=== PATIENT | female | born 1970 | race Caucasian/White ===

== ENCOUNTER 2021-12-26 08:23 | Inpatient (IN) ==
[2021-12-26] MEDS ORDERED: HYDROmorphone 1 MG/1 ML SYRINGE IV STA (08:58)
[2021-12-26] MEDS ORDERED: SODIUM CHLORIDE 0.9% 1,000 ML IV STA (08:58)
[2021-12-26] MEDS ORDERED: ONDANSETRON 4 MG/2 ML VIAL IV STA (08:58)
[2021-12-26] MEDS ORDERED: TAMSULOSIN 0.4 MG CAPSULE PO STA (09:49)
[2021-12-26] MEDS ORDERED: ONDANSETRON 4 MG/2 ML VIAL IV PRN (09:50)
[2021-12-26] MEDS: LACTATED RINGERS 1,000 ML IV SCH (10:39)
[2021-12-26] MEDS: HYDROmorphone 1 MG/1 ML SYRINGE IV PRN ×2 (16:24→21:39)
[2021-12-26] MEDS ORDERED: HYDROmorphone 2 MG TABLET PO PRN (17:16)
[2021-12-26] MEDS ORDERED: OXYBUTYNIN 5 MG TABLET PO PRN (17:16)
[2021-12-26] MEDS ORDERED: KETOROLAC 10 MG TABLET PO PRN (17:16)
[2021-12-26] MEDS ORDERED: ONDANSETRON ODT 4 MG TABLET PO PRN (17:27)
[2021-12-26 19:17] LABS: Basophils % 0.2 % (0.0-0.8); Eosinophils # 0.1 10*3/uL (0.0-0.87); Eosinophils % 0.6 % (0.00-10.9); Hematocrit 31.8 VOL% (35.7-47.0); Hemoglobin 10.5 GM/DL (12.0-16.0); Immature Granulocytes % 1.1 %; Immature Granulocytes Absolute 0.14 #; Lymphocytes # 1.4 10*3/uL (1.4-4.0); Lymphocytes % 11.1 % (21.3-54.2); Mean Corpuscular Volume 91.4 FL (87-102); Mean Platelet Volume 11.8 FL (9.6-12.0); Monocytes # 0.8 10*3/uL (0.11-0.8); Monocytes % 6.2 % (1.7-12.7); Neutrophils % 80.8 % (38.7-73.9); Platelet Count 147 T/CUMM (130-400); Red Blood Count 3.48 MC/CUMM (3.8-5.5); Red Cell Distribution Width 13.8 % (9.3-17.3)
[2021-12-26 19:49] LABS: Calcium 8.2 MG/DL (8.5-10.1); Osmolality,Calculated 275.7 MOS/KG (273-304); Potassium 3.2 MMOL/L (3.5-5.1)
[2021-12-26 20:40] LABS: Bacteria,Urine Occasional /HPF (Few); Mucus,Urine Occasional /LPF (Occasional); RBC,Urine 2 /HPF (0-4); Squamous Epithelial Cell,Urine Occasional /HPF (0-10)
[2021-12-26 20:41] LABS: Bilirubin,Urine Negative (Negative); Blood, Urine Moderate mg/dL (Negative); Glucose,Urine (UA) Negative (Negative); Ketones,Urine Negative (Negative); Nitrite,Urine Negative (Negative); Protein,Urine Trace mg/dL (Negative); Urine Appearance Clear (Clear); Urine Color Yellow (Yellow); Urine Specific Gravity <= 1.005 (1.001-1.035)
[2021-12-26] MEDS ORDERED: cefTRIAXone 1,000 MG in SODIUM CHLORIDE 0.9% 100 ML IV SCH (21:00)
[2021-12-26] MEDS: ATORVASTATIN 40 MG TABLET PO SCH (21:35)
[2021-12-26] MEDS: POTASSIUM CHLORIDE RIDER 10 MEQ/100 ML PREMIX IV PRN ×2 (22:44→23:52)
[2021-12-27] MEDS: POTASSIUM CHLORIDE RIDER 10 MEQ/100 ML PREMIX IV PRN ×2 (00:56→02:00)
[2021-12-27 05:20] LABS: Basophils # 0.1 10*3/uL (0.0-0.2); Basophils % 0.3 % (0.0-0.8); Eosinophils # 0.1 10*3/uL (0.0-0.87); Eosinophils % 0.7 % (0.00-10.9); Hematocrit 30.2 VOL% (35.7-47.0); Hemoglobin 9.9 GM/DL (12.0-16.0); Immature Granulocytes % 1.7 %; Immature Granulocytes Absolute 0.27 #; Lymphocytes # 1.8 10*3/uL (1.4-4.0); Lymphocytes % 11.6 % (21.3-54.2); Mean Corpuscular HGB Conc 32.8 GM/DL (32-36); Mean Corpuscular Volume 92.1 FL (87-102); Mean Platelet Volume 11.8 FL (9.6-12.0); Monocytes # 1.2 10*3/uL (0.11-0.8); Monocytes % 7.7 % (1.7-12.7); Platelet Count 163 T/CUMM (130-400); Red Blood Count 3.28 MC/CUMM (3.8-5.5); Red Cell Distribution Width 13.9 % (9.3-17.3); White Blood Count 15.9 T/CUMM (4-12)
[2021-12-27 05:38] LABS: Calcium 8.7 MG/DL (8.5-10.1); Potassium 4.3 MMOL/L (3.5-5.1)
[2021-12-27] MEDS ORDERED: cefTRIAXone 1,000 MG in SODIUM CHLORIDE 0.9% 100 ML IV ONE (06:00)
[2021-12-27 08:37] LABS: INR 1.1; PT Patient Result 11.9 SECS (10.5-12.0)
[2021-12-27] MEDS: MEROPENEM 500 MG in SODIUM CHLORIDE 0.9% 100 ML IV SCH ×3 (09:42→20:52)
[2021-12-27] MEDS: CITALOPRAM 40 MG TABLET PO SCH (11:01)
[2021-12-27] MEDS: ARIPiprazole 2 MG TABLET PO SCH (11:01)
[2021-12-27] MEDS: TAMSULOSIN 0.4 MG CAPSULE PO SCH (11:02)
[2021-12-27] MEDS: PANTOPRAZOLE 40 MG TABLET PO SCH (11:03)
[2021-12-27] MEDS ORDERED: DIAZEPAM 5 MG TABLET PO ONE (11:30)
[2021-12-27] MEDS: SODIUM CHLORIDE 0.45% 1,000 ML IV SCH ×2 (11:58→19:10)
[2021-12-27] MEDS ORDERED: NALOXONE 0.4 MG/ML VIAL IV PRN (16:07)
[2021-12-27] MEDS: HYDROmorphone 1 MG/1 ML SYRINGE IV PRN (16:09)
[2021-12-27] MEDS ORDERED: diphenhydrAMINE 50 MG/1 ML VIAL IV PRN (16:09)
[2021-12-27] MEDS ORDERED: HYDROmorphone PCA 30 MG/30 ML SYRINGE IV SCH (16:30)
[2021-12-27] MEDS: ATORVASTATIN 40 MG TABLET PO SCH (21:55)
[2021-12-28] MEDS: SODIUM CHLORIDE 0.45% 1,000 ML IV SCH ×2 (01:40→17:54)
[2021-12-28] MEDS: MEROPENEM 500 MG in SODIUM CHLORIDE 0.9% 100 ML IV SCH ×4 (02:23→21:53)
[2021-12-28] MEDS: LACTATED RINGERS 1,000 ML IV SCH ×2 (02:47→02:48)
[2021-12-28 05:29] LABS: Basophils % 0.4 % (0.0-0.8); Eosinophils # 0.1 10*3/uL (0.0-0.87); Eosinophils % 0.8 % (0.00-10.9); Hematocrit 27.3 VOL% (35.7-47.0); Hemoglobin 8.9 GM/DL (12.0-16.0); Immature Granulocytes Absolute 0.11 #; Lymphocytes # 1.3 10*3/uL (1.4-4.0); Lymphocytes % 11.2 % (21.3-54.2); Mean Corpuscular HGB Conc 32.6 GM/DL (32-36); Mean Corpuscular Volume 92.9 FL (87-102); Mean Platelet Volume 11.3 FL (9.6-12.0); Monocytes # 0.6 10*3/uL (0.11-0.8); Monocytes % 5.6 % (1.7-12.7); Platelet Count 216 T/CUMM (130-400); Red Blood Count 2.94 MC/CUMM (3.8-5.5); White Blood Count 11.2 T/CUMM (4-12)
[2021-12-28 05:54] LABS: Osmolality,Calculated 272.8 MOS/KG (273-304); Potassium 3.4 MMOL/L (3.5-5.1)
[2021-12-28] MEDS: TAMSULOSIN 0.4 MG CAPSULE PO SCH (09:23)
[2021-12-28] MEDS: ARIPiprazole 2 MG TABLET PO SCH (09:23)
[2021-12-28] MEDS: CITALOPRAM 40 MG TABLET PO SCH (09:23)
[2021-12-28] MEDS: PANTOPRAZOLE 40 MG TABLET PO SCH (09:23)
[2021-12-28] MEDS ORDERED: POTASSIUM CHLORIDE 20 MEQ TABLET PO ONE (09:24)
[2021-12-28] MEDS: DEXT 5% NACL 0.45% KCL 20 MEQ 20 MEQ/1,000 ML BAG IV SCH (10:44)
[2021-12-28] MEDS: KETOROLAC 15 MG/1 ML VIAL IV SCH ×2 (13:01→17:55)
[2021-12-28] MEDS: HYDROmorphone 2 MG TABLET PO PRN ×2 (15:41→21:52)
[2021-12-28] MEDS: ATORVASTATIN 40 MG TABLET PO SCH (21:51)
[2021-12-29] MEDS: KETOROLAC 15 MG/1 ML VIAL IV SCH ×4 (00:27→21:22)
[2021-12-29] MEDS: DEXT 5% NACL 0.45% KCL 20 MEQ 20 MEQ/1,000 ML BAG IV SCH ×2 (00:28→16:08)
[2021-12-29] MEDS: MEROPENEM 500 MG in SODIUM CHLORIDE 0.9% 100 ML IV SCH ×4 (03:15→21:07)
[2021-12-29 06:34] LABS: Basophils # 0.1 10*3/uL (0.0-0.2); Basophils % 0.4 % (0.0-0.8); Eosinophils # 0.1 10*3/uL (0.0-0.87); Eosinophils % 0.9 % (0.00-10.9); Hematocrit 29.6 VOL% (35.7-47.0); Hemoglobin 9.3 GM/DL (12.0-16.0); Immature Granulocytes % 1.3 %; Immature Granulocytes Absolute 0.16 #; Lymphocytes # 1.5 10*3/uL (1.4-4.0); Lymphocytes % 11.9 % (21.3-54.2); Mean Corpuscular HGB Conc 31.4 GM/DL (32-36); Mean Corpuscular Volume 95.5 FL (87-102); Mean Platelet Volume 11.1 FL (9.6-12.0); Monocytes # 0.8 10*3/uL (0.11-0.8); Monocytes % 6.1 % (1.7-12.7); Neutrophils % 79.4 % (38.7-73.9); Platelet Count 314 T/CUMM (130-400); Red Cell Distribution Width 14.3 % (9.3-17.3); White Blood Count 12.3 T/CUMM (4-12)
[2021-12-29 07:01] LABS: Calcium 8.3 MG/DL (8.5-10.1); Osmolality,Calculated 278.3 MOS/KG (273-304); Potassium 4.3 MMOL/L (3.5-5.1)
[2021-12-29] MEDS: ARIPiprazole 2 MG TABLET PO SCH (10:14)
[2021-12-29] MEDS: CITALOPRAM 40 MG TABLET PO SCH (10:15)
[2021-12-29] MEDS: PANTOPRAZOLE 40 MG TABLET PO SCH (10:15)
[2021-12-29] MEDS: TAMSULOSIN 0.4 MG CAPSULE PO SCH (10:15)
[2021-12-29] MEDS: HYDROmorphone 2 MG TABLET PO PRN ×2 (10:16→23:48)
[2021-12-29] MEDS: SODIUM CHLORIDE 0.45% 1,000 ML IV SCH ×2 (19:21→19:27)
[2021-12-29] MEDS: ATORVASTATIN 40 MG TABLET PO SCH (21:07)
[2021-12-30] MEDS: MEROPENEM 500 MG in SODIUM CHLORIDE 0.9% 100 ML IV SCH ×2 (04:03→08:28)
[2021-12-30] MEDS: KETOROLAC 15 MG/1 ML VIAL IV SCH ×4 (04:12→22:30)
[2021-12-30] MEDS: DEXT 5% NACL 0.45% KCL 20 MEQ 20 MEQ/1,000 ML BAG IV SCH (05:09)
[2021-12-30 06:12] LABS: Basophils # 0.1 10*3/uL (0.0-0.2); Basophils % 0.5 % (0.0-0.8); Eosinophils # 0.1 10*3/uL (0.0-0.87); Eosinophils % 1.2 % (0.00-10.9); Hematocrit 29.8 VOL% (35.7-47.0); Hemoglobin 9.2 GM/DL (12.0-16.0); Immature Granulocytes % 0.8 %; Immature Granulocytes Absolute 0.08 #; Lymphocytes # 1.3 10*3/uL (1.4-4.0); Lymphocytes % 12.8 % (21.3-54.2); Mean Corpuscular HGB Conc 30.9 GM/DL (32-36); Mean Corpuscular Volume 96.1 FL (87-102); Monocytes # 0.7 10*3/uL (0.11-0.8); Monocytes % 6.9 % (1.7-12.7); Neutrophils % 77.8 % (38.7-73.9); Platelet Count 392 T/CUMM (130-400); Red Cell Distribution Width 14.3 % (9.3-17.3); White Blood Count 9.9 T/CUMM (4-12)
[2021-12-30 06:33] LABS: Calcium 8.1 MG/DL (8.5-10.1); Osmolality,Calculated 280.1 MOS/KG (273-304); Potassium 4.7 MMOL/L (3.5-5.1)
[2021-12-30] MEDS: CITALOPRAM 40 MG TABLET PO SCH (08:25)
[2021-12-30] MEDS: ARIPiprazole 2 MG TABLET PO SCH (08:25)
[2021-12-30] MEDS: TAMSULOSIN 0.4 MG CAPSULE PO SCH (08:26)
[2021-12-30] MEDS: HYDROmorphone 2 MG TABLET PO PRN (08:27)
[2021-12-30] MEDS: PANTOPRAZOLE 40 MG TABLET PO SCH (10:30)
[2021-12-30] MEDS ORDERED: SIMETHICONE CHEW 125 MG TABLET PO PRN (11:42)
[2021-12-30] MEDS: LEVOFLOXACIN INJ 750 MG/150 ML PREMIX IV SCH (17:04)
[2021-12-30] MEDS: ATORVASTATIN 40 MG TABLET PO SCH (22:33)
[2021-12-31] MEDS: DEXT 5% NACL 0.45% KCL 20 MEQ 20 MEQ/1,000 ML BAG IV SCH (01:30)
[2021-12-31] MEDS: KETOROLAC 15 MG/1 ML VIAL IV SCH ×2 (04:04→09:03)
[2021-12-31 06:43] LABS: Basophils # 0.1 10*3/uL (0.0-0.2); Basophils % 0.7 % (0.0-0.8); Eosinophils # 0.1 10*3/uL (0.0-0.87); Eosinophils % 1.4 % (0.00-10.9); Hematocrit 29.1 VOL% (35.7-47.0); Hemoglobin 9.2 GM/DL (12.0-16.0); Immature Granulocytes % 0.8 %; Immature Granulocytes Absolute 0.07 #; Lymphocytes # 1.5 10*3/uL (1.4-4.0); Lymphocytes % 15.9 % (21.3-54.2); Mean Corpuscular HGB Conc 31.6 GM/DL (32-36); Mean Corpuscular Volume 94.2 FL (87-102); Mean Platelet Volume 10.2 FL (9.6-12.0); Monocytes # 0.8 10*3/uL (0.11-0.8); Monocytes % 8.2 % (1.7-12.7); Platelet Count 463 T/CUMM (130-400); Red Blood Count 3.09 MC/CUMM (3.8-5.5); White Blood Count 9.2 T/CUMM (4-12)
[2021-12-31 07:31] LABS: Calcium 8.5 MG/DL (8.5-10.1); Osmolality,Calculated 277.3 MOS/KG (273-304); Potassium 4.5 MMOL/L (3.5-5.1)
[2021-12-31 08:04] VITALS: BP 115/65
[2021-12-31] MEDS: ARIPiprazole 2 MG TABLET PO SCH (09:01)
[2021-12-31] MEDS: CITALOPRAM 40 MG TABLET PO SCH (09:02)
[2021-12-31] MEDS: PANTOPRAZOLE 40 MG TABLET PO SCH (09:02)
[2021-12-31] MEDS: TAMSULOSIN 0.4 MG CAPSULE PO SCH (09:02)
[2021-12-31] MEDS: LEVOFLOXACIN INJ 750 MG/150 ML PREMIX IV SCH (09:04)
== END 2021-12-31 10:57 | disposition home health service (06) | DRG 690 ==
LOC: N.ED 08:23 → N.EDINP 08:23 → N.5E 10:45
PROVIDERS: ADMIT Surgery; ATTEND Surgery

== ENCOUNTER 2022-01-09 10:03 | Inpatient (IN) ==
[2022-01-09] MEDS ORDERED: ONDANSETRON 4 MG/2 ML VIAL IV STA (10:37)
[2022-01-09] MEDS ORDERED: HYDROmorphone 1 MG/1 ML SYRINGE IV STA ×2 (10:37→11:27)
[2022-01-09] MEDS ORDERED: SODIUM CHLORIDE 0.9% 1,000 ML IV STA (10:37)
[2022-01-09 10:49] LABS: Basophils # 0.2 10*3/uL (0.0-0.2); Basophils % 1.3 % (0.0-0.8); Eosinophils # 0.5 10*3/uL (0.0-0.87); Eosinophils % 4.2 % (0.00-10.9); Hematocrit 34.7 VOL% (35.7-47.0); Hemoglobin 11.2 GM/DL (12.0-16.0); Immature Granulocytes % 0.4 %; Immature Granulocytes Absolute 0.05 #; Lymphocytes # 3.1 10*3/uL (1.4-4.0); Lymphocytes % 25.9 % (21.3-54.2); Mean Corpuscular HGB Conc 32.3 GM/DL (32-36); Mean Corpuscular Volume 91.8 FL (87-102); Mean Platelet Volume 10.4 FL (9.6-12.0); Monocytes # 1.2 10*3/uL (0.11-0.8); Monocytes % 10.1 % (1.7-12.7); Neutrophils % 58.1 % (38.7-73.9); Platelet Count 541 T/CUMM (130-400); Red Blood Count 3.78 MC/CUMM (3.8-5.5); Red Cell Distribution Width 13.4 % (9.3-17.3); White Blood Count 11.9 T/CUMM (4-12)
[2022-01-09] MEDS ORDERED: PROMETHAZINE 25 MG/1 ML VIAL ONE (10:57)
[2022-01-09] MEDS ORDERED: PROMETHAZINE 25 MG/1 ML VIAL IM STA (11:03)
[2022-01-09 11:09] LABS: Albumin 2.7 G/DL (3.4-5.0); Bilirubin,Total 0.5 MG/DL (0.20-1.00); Calcium 9.1 MG/DL (8.5-10.1); Osmolality,Calculated 280.1 MOS/KG (273-304); Potassium 3.4 MMOL/L (3.5-5.1); Total Protein 7.8 G/DL (6.4-8.2)
[2022-01-09] MEDS ORDERED: KETOROLAC 30 MG/1 ML VIAL IV STA (11:27)
[2022-01-09 11:31] LABS: Bacteria,Urine Occasional /HPF (Few); Mucus,Urine Occasional /LPF (Occasional); RBC,Urine 4 /HPF (0-4); Squamous Epithelial Cell,Urine Occasional /HPF (0-10)
[2022-01-09 11:32] LABS: Bilirubin,Urine Negative (Negative); Blood, Urine Trace mg/dL (Negative); Glucose,Urine (UA) Negative (Negative); Ketones,Urine Negative (Negative); Nitrite,Urine Negative (Negative); Protein,Urine Negative (Negative); Urine Appearance Slightly Hazy (Clear); Urine Color Yellow (Yellow); Urine Specific Gravity 1.015 (1.001-1.035); Urine Urobilinogen 0.2 eU/dL (<2.0); Urine pH 7.5 (4.5-8.0)
[2022-01-09] MEDS ORDERED: SODIUM CHLORIDE 0.9% 2,400 ML IV ONE (12:25)
[2022-01-09] MEDS ORDERED: ACETAMINOPHEN 325 MG TABLET PO PRN (16:29)
[2022-01-09] MEDS ORDERED: ONDANSETRON 4 MG/2 ML VIAL IV PRN (16:29)
[2022-01-09] MEDS ORDERED: cefTRIAXone 1,000 MG in SODIUM CHLORIDE 0.9% 100 ML IV ONE (16:58)
[2022-01-09] MEDS: SODIUM CHLORIDE 0.9% 1,000 ML IV SCH (18:38)
[2022-01-09] MEDS: HYDROmorphone 1 MG/1 ML SYRINGE IV PRN ×2 (18:40→22:00)
[2022-01-09] MEDS: DOCUSATE SODIUM 100 MG CAPSULE PO SCH (21:43)
[2022-01-10] MEDS: HYDROmorphone 1 MG/1 ML SYRINGE IV PRN ×2 (02:02→15:59)
[2022-01-10] MEDS: SODIUM CHLORIDE 0.9% 1,000 ML IV SCH ×2 (03:39→15:04)
[2022-01-10 05:12] LABS: Basophils # 0.1 10*3/uL (0.0-0.2); Basophils % 0.8 % (0.0-0.8); Eosinophils # 0.8 10*3/uL (0.0-0.87); Eosinophils % 5.5 % (0.00-10.9); Hematocrit 31.7 VOL% (35.7-47.0); Hemoglobin 9.7 GM/DL (12.0-16.0); Immature Granulocytes % 0.6 %; Immature Granulocytes Absolute 0.09 #; Lymphocytes # 2.8 10*3/uL (1.4-4.0); Lymphocytes % 19.6 % (21.3-54.2); Mean Corpuscular HGB Conc 30.6 GM/DL (32-36); Mean Corpuscular Volume 96.9 FL (87-102); Mean Platelet Volume 10.3 FL (9.6-12.0); Monocytes # 1.7 10*3/uL (0.11-0.8); Monocytes % 11.6 % (1.7-12.7); Neutrophils % 61.9 % (38.7-73.9); Platelet Count 405 T/CUMM (130-400); Red Blood Count 3.27 MC/CUMM (3.8-5.5); Red Cell Distribution Width 13.9 % (9.3-17.3); White Blood Count 14.2 T/CUMM (4-12)
[2022-01-10 05:41] LABS: Calcium 7.8 MG/DL (8.5-10.1); Osmolality,Calculated 287.7 MOS/KG (273-304); Potassium 4.1 MMOL/L (3.5-5.1)
[2022-01-10] MEDS ORDERED: ARIPiprazole 2 MG TABLET PO SCH (09:00)
[2022-01-10] MEDS ORDERED: LEVOFLOXACIN INJ 500 MG/100 ML PREMIX IV SCH (09:00)
[2022-01-10] MEDS ORDERED: ATORVASTATIN 40 MG TABLET PO SCH (09:00)
[2022-01-10] MEDS ORDERED: PANTOPRAZOLE 40 MG TABLET PO SCH (09:00)
[2022-01-10] MEDS ORDERED: CITALOPRAM 40 MG TABLET PO SCH (09:00)
[2022-01-10] MEDS ORDERED: cefTRIAXone 1,000 MG in SODIUM CHLORIDE 0.9% 100 ML IV ONE (09:30)
[2022-01-10] MEDS ORDERED: SCOPOLAMINE 1.5 MG PATCH TRANSDERM ONE (09:58)
[2022-01-10] MEDS ORDERED: fentaNYL 100 MCG/2 ML VIAL ONE (10:09)
[2022-01-10] MEDS ORDERED: MIDAZOLAM 2 MG/2 ML VIAL ONE (10:09)
[2022-01-10] MEDS ORDERED: NEOMYCIN/POLYMYXIN IRRIG SOLN 1 ML AMP BLADDERIRR ONE (10:13)
[2022-01-10] MEDS ORDERED: LACTATED RINGERS 1,000 ML IV SCH (10:30)
[2022-01-10] MEDS ORDERED: LIDOCAINE 2% 5 ML VIAL ONE (10:43)
[2022-01-10] MEDS ORDERED: propofoL 200 MG/20 ML VIAL IV ONE (10:43)
[2022-01-10] MEDS ORDERED: ONDANSETRON 4 MG/2 ML VIAL ONE (10:43)
[2022-01-10] MEDS ORDERED: SEVOFLURANE 1 UNIT/15 MINUTE INH ONE (10:43)
[2022-01-10] MEDS ORDERED: HYDROmorphone 1 MG/1 ML SYRINGE IV PRN (11:28)
[2022-01-10] MEDS ORDERED: ONDANSETRON 4 MG/2 ML VIAL IV PRN (11:28)
[2022-01-10] MEDS: DOCUSATE SODIUM 100 MG CAPSULE PO SCH (15:03)
[2022-01-10 16:00] VITALS: BP 99/50
[2022-01-10] MEDS ORDERED: MEROPENEM 500 MG in SODIUM CHLORIDE 0.9% 100 ML IV SCH (16:00)
[2022-01-10] MEDS ORDERED: ZALEPLON 5 MG CAPSULE PO SCH (21:00)
== END 2022-01-10 17:13 | disposition home or self-care (01) | DRG 661 ==
LOC: N.ED 10:03 → N.EDINP 11:34 → N.5E 16:28
PROVIDERS: ADMIT Family Medicine; ATTEND Family Medicine

== ENCOUNTER 2022-04-10 06:50 | Inpatient (IN) ==
[2022-04-10 07:41] LABS: Basophils % 0.5 % (0.0-0.8); Eosinophils # 0.3 10*3/uL (0.0-0.87); Eosinophils % 4.1 % (0.00-10.9); Hematocrit 37.7 VOL% (35.7-47.0); Hemoglobin 12.2 GM/DL (12.0-16.0); Immature Granulocytes % 0.4 %; Immature Granulocytes Absolute 0.03 #; Lymphocytes # 1.5 10*3/uL (1.4-4.0); Lymphocytes % 19.8 % (21.3-54.2); Mean Corpuscular HGB Conc 32.4 GM/DL (32-36); Mean Platelet Volume 10.9 FL (9.6-12.0); Monocytes # 0.5 10*3/uL (0.11-0.8); Monocytes % 6.3 % (1.7-12.7); Neutrophils % 68.9 % (38.7-73.9); Platelet Count 201 T/CUMM (130-400); Red Cell Distribution Width 12.5 % (9.3-17.3); White Blood Count 7.8 T/CUMM (4-12)
[2022-04-10 07:59] LABS: Albumin 3.4 G/DL (3.4-5.0); Bilirubin,Total 0.4 MG/DL (0.20-1.00); Calcium 9.4 MG/DL (8.5-10.1); Potassium 3.2 MMOL/L (3.5-5.1); Total Protein 7.5 G/DL (6.4-8.2)
[2022-04-10 08:26] LABS: Bacteria,Urine Occasional /HPF (Few); Mucus,Urine Few /LPF (Occasional); Squamous Epithelial Cell,Urine Few /HPF (0-10)
[2022-04-10 08:27] LABS: Bilirubin,Urine Negative (Negative); Blood, Urine Trace mg/dL (Negative); Glucose,Urine (UA) Negative (Negative); Ketones,Urine Negative (Negative); Nitrite,Urine Positive (Negative); Protein,Urine Negative (Negative); Urine Appearance Slightly Hazy (Clear); Urine Color Yellow (Yellow); Urine Specific Gravity > 1.030 (1.001-1.035); Urine Urobilinogen 0.2 eU/dL (<2.0); Urine pH 5.5 (4.5-8.0)
[2022-04-10] MEDS ORDERED: cefTRIAXone 1,000 MG in SODIUM CHLORIDE 0.9% 100 ML IV STA (08:55)
[2022-04-10] MEDS ORDERED: ALBUTEROL/IPRATROPIUM 3 ML NEB RESP TX PRN (09:55)
[2022-04-10] MEDS ORDERED: ACETAMINOPHEN 325 MG TABLET PO PRN (09:55)
[2022-04-10] MEDS ORDERED: BISACODYL 5 MG TABLET PO PRN (09:55)
[2022-04-10] MEDS ORDERED: POTASSIUM CHLORIDE 20 MEQ TABLET PO PRN (09:58)
[2022-04-10] MEDS ORDERED: KETOROLAC 30 MG/1 ML VIAL IV PRN (10:10)
[2022-04-10] MEDS ORDERED: LACTATED RINGERS 1,000 ML IV SCH (10:30)
[2022-04-10] MEDS ORDERED: oxyCODONE/ACETAMINOPHEN 5-325 MG TABLET PO PRN (10:32)
[2022-04-10] MEDS ORDERED: PNEUMOCOCCAL VACCINE (13 VALENT) 0.5 ML SYRINGE IM ONE (11:14)
[2022-04-10] MEDS ORDERED: LIDOCAINE 2% 5 ML VIAL ONE (11:49)
[2022-04-10] MEDS ORDERED: propofoL 200 MG/20 ML VIAL IV ONE (11:49)
[2022-04-10] MEDS: HYDROmorphone 1 MG/1 ML SYRINGE IV PRN ×3 (13:39→22:49)
[2022-04-10] MEDS: PIPERACILLIN/TAZOBACTAM 3,375 MG in SODIUM CHLORIDE 0.9% 100 ML IV SCH ×2 (13:40→21:47)
[2022-04-10] MEDS: LACTATED RINGERS 1,000 ML IV SCH (13:50)
[2022-04-10] MEDS: ONDANSETRON 4 MG/2 ML VIAL IV PRN ×2 (15:09→22:52)
[2022-04-10] MEDS ORDERED: ACYCLOVIR INJ 300 MG in SODIUM CHLORIDE 0.9% 100 ML IV SCH (21:00)
[2022-04-10] MEDS ORDERED: ARIPiprazole 2 MG TABLET PO SCH (21:00)
[2022-04-10] MEDS ORDERED: ZALEPLON 5 MG CAPSULE PO SCH (21:00)
[2022-04-10] MEDS ORDERED: CITALOPRAM 40 MG TABLET PO SCH (21:00)
[2022-04-11] MEDS: LACTATED RINGERS 1,000 ML IV SCH ×2 (00:15→08:21)
[2022-04-11] MEDS: ONDANSETRON 4 MG/2 ML VIAL IV PRN (03:26)
[2022-04-11] MEDS: HYDROmorphone 1 MG/1 ML SYRINGE IV PRN ×5 (03:27→13:15)
[2022-04-11] MEDS: PIPERACILLIN/TAZOBACTAM 3,375 MG in SODIUM CHLORIDE 0.9% 100 ML IV SCH ×2 (05:22→15:22)
[2022-04-11 05:24] LABS: Basophils % 0.5 % (0.0-0.8); Eosinophils # 0.4 10*3/uL (0.0-0.87); Eosinophils % 5.1 % (0.00-10.9); Hematocrit 33.2 VOL% (35.7-47.0); Hemoglobin 10.9 GM/DL (12.0-16.0); Immature Granulocytes % 0.3 %; Immature Granulocytes Absolute 0.02 #; Lymphocytes # 1.9 10*3/uL (1.4-4.0); Lymphocytes % 23.8 % (21.3-54.2); Mean Corpuscular HGB Conc 32.8 GM/DL (32-36); Mean Corpuscular Volume 94.3 FL (87-102); Mean Platelet Volume 11.3 FL (9.6-12.0); Monocytes # 0.6 10*3/uL (0.11-0.8); Monocytes % 7.1 % (1.7-12.7); Neutrophils % 63.2 % (38.7-73.9); Platelet Count 172 T/CUMM (130-400); Red Blood Count 3.52 MC/CUMM (3.8-5.5); Red Cell Distribution Width 12.5 % (9.3-17.3); White Blood Count 7.9 T/CUMM (4-12)
[2022-04-11 05:51] LABS: Calcium 9.1 MG/DL (8.5-10.1); Potassium 3.6 MMOL/L (3.5-5.1)
[2022-04-11] MEDS ORDERED: ACYCLOVIR INJ 300 MG in SODIUM CHLORIDE 0.9% 100 ML IV SCH (09:00)
[2022-04-11] MEDS ORDERED: PANTOPRAZOLE 40 MG TABLET PO SCH (09:00)
[2022-04-11] MEDS ORDERED: MIDAZOLAM 2 MG/2 ML VIAL ONE ×2 (09:45→10:27)
[2022-04-11] MEDS ORDERED: MIDAZOLAM 2 MG/2 ML VIAL IV ONE (09:46)
[2022-04-11] MEDS ORDERED: LIDOCAINE 2% 5 ML VIAL ONE (10:26)
[2022-04-11] MEDS ORDERED: ROCURONIUM 50 MG/5 ML VIAL IV ONE (10:26)
[2022-04-11] MEDS ORDERED: propofoL 200 MG/20 ML VIAL IV ONE (10:26)
[2022-04-11] MEDS ORDERED: ONDANSETRON 4 MG/2 ML VIAL ONE (10:26)
[2022-04-11] MEDS ORDERED: SEVOFLURANE 1 UNIT/15 MINUTE INH ONE (10:26)
[2022-04-11] MEDS ORDERED: PHENYLEPHRINE 1 MG/10 ML SYRINGE IV ONE (10:26)
[2022-04-11] MEDS ORDERED: fentaNYL 100 MCG/2 ML VIAL ONE (10:27)
[2022-04-11] MEDS ORDERED: BUPIVACAINE MPF 0.25% 10 ML VIAL ONE (10:33)
[2022-04-11] MEDS ORDERED: TISSUE ADHESIVE 1 EACH APPLICATOR TOP ONE (10:33)
[2022-04-11] MEDS ORDERED: LIDOCAINE 1%/EPI INJ 20 ML VIAL ONE (10:33)
[2022-04-11] MEDS ORDERED: SCOPOLAMINE 1.5 MG PATCH TRANSDERM ONE (10:42)
[2022-04-11] MEDS ORDERED: DEXAMETHASONE 4 MG/1 ML VIAL ONE (11:09)
[2022-04-11] MEDS ORDERED: PROMETHAZINE 25 MG/1 ML VIAL ONE (11:09)
[2022-04-11] MEDS ORDERED: LACTATED RINGERS 1,000 ML IV ONE (11:17)
[2022-04-11] MEDS ORDERED: AMISULPRIDE 10 MG/4 ML VIAL IV ONE ×2 (12:52→13:00)
[2022-04-11] MEDS ORDERED: MEPERIDINE 25 MG/1 ML VIAL IV PRN (12:59)
[2022-04-11] MEDS ORDERED: HYDROmorphone 1 MG/1 ML SYRINGE IV PRN (12:59)
[2022-04-11] MEDS ORDERED: diphenhydrAMINE 50 MG/1 ML VIAL IV PRN (12:59)
[2022-04-11 13:46] VITALS: BP 114/63
[2022-04-11] MEDS ORDERED: NYSTATIN 500,000 UNIT/5 ML UDCUP SWISH/SWAL SCH (17:00)
== END 2022-04-11 15:30 | disposition home or self-care (01) | DRG 327 ==
LOC: N.ED 06:50 → N.EDINP 09:55 → N.5E 10:39
PROVIDERS: ADMIT Surgery; ATTEND Surgery